=== PATIENT | female | born 1965 | race Caucasian/White ===

== ENCOUNTER 2016-06-28 14:49 | Emergency (ER) | payer OTHER ==
[2016-06-28 15:05] VITALS: TEMP 96.9
--- NOTE | 2016-06-28 15:48 | ED.PDOC ---
History of Present Illness - General Chief Complaint: Lower Extremity Injury Stated Complaint: left knee pain Time Seen by Provider: 06/28/16 15:40 Source: patient, RN notes reviewed, Vital Signs reviewed Exam Limitations: no limitations - History of Present Illness Initial Comments: Ms. Clair Estes 51 y/o female with history of hypothyroidism stated she had been hurting on her left knee for several weeks and for the last 3 days getting worse. Denies history of tauma,fever ;weight loss,but stated sometimes left knee hurts when she wakes up in am. Occurred: last week, other Pain - Lower Extremity: moderate: Left Knee Method of Injury: other - no injury Improving Factors: nothing Worsening Factors: movement Associated Symptoms: see hpi Allergies/Adverse Reactions: Allergies NO KNOWN ALLERGY Allergy (Verified 06/28/16 15:04) Home Medications: Ambulatory Orders Meloxicam [Mobic] 15 mg PO DAILY #30 tab 06/28/16 Tramadol HCl 50 mg PO TID PRN #30 tab 06/28/16 Review of Systems - Review of Systems Constitutional: States: no symptoms reported EENTM: States: no symptoms reported Respiratory: States: no symptoms reported Cardiology: States: no symptoms reported Gastrointestinal/Abdominal: States: no symptoms reported Genitourinary: States: no symptoms reported Musculoskeletal: States: joint pain Skin: States: no symptoms reported Neurological: States: no symptoms reported Endocrine: States: no symptoms reported Hematologic/Lymphatic: States: no symptoms reported Past Medical History (General) - Patient Medical History Hx Congestive Heart Failure: No Hx Thyroid Disease: Yes - Hypothyroid Hx Diabetes: No Surgical History: other - c section - Vaccination History Hx Influenza Vaccination: No - Social History Hx Tobacco Use: Yes - Activities of Daily Living Grooming Ability: Independent Eating (Feeding) Ability: Independent Toileting Ability: Independent Family Medical History - Family History Mother Family History: Unknown Living Status: Unknown Hx Family Diabetes: Yes - dad Hx Family Cancer: Yes - leukemia-dad Physical Exam - Physical Exam General Appearance: Alert, No apparent distress Eyes, Ears, Nose, Throat: PERRL/EOMI, normal ENT inspection, TMs normal Neck: non-tender, full range of motion, supple, normal inspection Cardiovascular/Respiratory: regular rate, rhythm, no M/R/G, normal peripheral pulses, no JVD Gastrointestinal/Abdominal: non-tender, no organomegaly Back: normal inspection, no CVA tenderness Thigh/Hip: normal inspection, non-tender Leg: normal inspection, no evidence of injury, other - no calf tenderness Knee: limited ROM - left knee because of pain, pain - left knee, swelling - left knee Ankle: normal inspection, non-tender Foot: normal inspection, non-tender Neuro/Tendon: normal sensation, normal motor functions, no evidence tendon injury Mental Status: alert, oriented x 3 Skin: normal color, warm/dry Progress - EKG/XRAY/CT XRAY: knee - left mild degenerative changes Departure - Departure Clinical Impression: Pain, joint, knee, left Time of Disposition: 16:47 Disposition: Discharge to Home or Self Care Condition: Fair Departure Forms: ED Discharge - Pt. Copy, Patient Portal Self Enrollment Instructions: DI for Knee Pain, Certain Exercises May Help People with Knee Osteoarthritis Referrals: KIRIT JI [Primary Care Provider] - 1-2 Weeks Prescriptions: Meloxicam [Mobic] 15 mg PO DAILY #30 tab Tramadol HCl 50 mg PO TID PRN #30 tab PRN Reason: Pain Home Medications: Ambulatory Orders Meloxicam [Mobic] 15 mg PO DAILY #30 tab 06/28/16 Tramadol HCl 50 mg PO TID PRN #30 tab 06/28/16 Additional Instructions: NEED to sign up with primary md
--- NOTE | 2016-06-28 16:19 | RAD ---
EXAM DESCRIPTION: Knee,Left Complete CLINICAL HISTORY: 51 years Female, pain COMPARISON: None. FINDINGS: 3 views of the left knee show no acute fracture or malalignment. There is no definite left knee joint effusion. Mild medial joint space narrowing. IMPRESSION: Mild degenerative changes, otherwise unremarkable exam. Electronically signed by: Matt Ferrer MD 06/28/2016 4:20 PM CDT Workstation: [facility]
[2016-06-28 17:09] VITALS: BP 129/87; O2SAT 97
== END 2016-06-28 17:09 | disposition home or self-care (01) ==
LOC: ER 14:49
DX: M25.562 Pain in left knee (principal); E03.9 Hypothyroidism, unspecified; Z87.891 Personal history of nicotine dependence

== ENCOUNTER → 2017-08-23 | Outpatient (CLI) | payer OTHER ==
--- NOTE | 2017-08-25 09:34 | MAM ---
EXAM DESCRIPTION: 3D Screening BILATERAL : Digital Mammography. CLINICAL HISTORY: 53 years Female SCREENING . No complaints. Remote family history of breast cancer. Childbirth. Postmenopausal. No HRT. COMPARISON: Baseline study at this facility.. No prior reports available. TECHNIQUE: Bilateral CC and MLO projection full-field images, 3-D tomosynthesis digital mammographic technique. CAD not utilized. FINDINGS: The breast parenchymal density pattern is: Scattered areas of fibroglandular density. No skin thickening or nipple retraction. Focal asymmetry in the retroareolar left breast. Predominantly behind the nipple and extending to the 600 clock position. Bilateral well-defined nodular densities are most likely intramammary lymph nodes. Minimal architectural distortion at the 200 clock position of the middle third of the left breast approximately 8 cm from the nipple. No new focal, stellate mass or density, focal asymmetry , and no suspicious microcalcifications right breast. IMPRESSION: BI-RADS CATEGORY: 0 - INCOMPLETE- Need additional imaging evaluation. FOLLOW-UP: Recall for additional imaging: . Bilateral 3-D tomosynthesis full field LM images. Spot compression 2-D regions of interest in the left breast LM and CC projections. Targeted left breast ultrasound if indicated by diagnostic images.. Written communication concerning the IMPRESSION and Follow-up, will be mailed to the patient and referring health care provider. Electronically signed by: Jerome Moise MD 08/25/2017 9:33 AM CDT
== END ==
LOC: MAMMO 09:00 → EDBD 09:00
PROVIDERS: ATTEND Obstetrics & Gynecology
DX: Z12.31 Encounter for screening mammogram for malignant neoplasm of breast (principal)

== ENCOUNTER → 2017-09-07 | Outpatient (CLI) | payer OTHER ==
--- NOTE | 2017-09-08 08:27 | US ---
EXAM DESCRIPTION: Breast,Left: Ultrasound CLINICAL HISTORY: 53 yearsFemaleABNORMAL MAMMO COMPARISON: Digital diagnostic mammogram left breast this visit. TECHNIQUE: Transcutaneous scanning of the left breast utilizing awan-scale and Doppler modes. Scanning performed by the stone polisher and Dr. Moise. FINDINGS: Scanning at the 300 clock position 5 cm from the nipple. Oval-shaped circumscribed solid nodule measuring 3.7 x 3.1 cm with parallel orientation and predominantly posterior enhancement features. Most likely a small fibroadenoma. Surrounding tissue is mostly fatty echotexture with minimal fibroglandular tissues. No distinct cyst. No parenchymal edema or large calcifications. No overlying skin changes or abnormal vascularity. Scanning in the retroareolar left breast show no abnormal findings. IMPRESSION: 1. Bi-Rads Category 3: Probably Benign Findings. 2. Please refer to left breast 3-D tomosynthesis diagnostic mammographic examination and report on this visit. The FINDINGS and the FOLLOW-UP plan were reviewed in person with the patient after the examination. Written communication explaining the IMPRESSION and FOLLOW-UP will be mailed to the patient and referring care provider. Electronically signed by: Jerome Moise MD 09/08/2017 8:26 AM CDT
--- NOTE | 2017-09-08 11:27 | MAM ---
EXAM DESCRIPTION: Diagnostic Mammo,Bilateral: Digital Mammography CLINICAL HISTORY: 53 yearsFemaleABNORMAL SCREENING focal asymmetry in the retroareolar left breast and minimal architectural distortion of the upper-outer quadrant of the middle third of the left breast.. COMPARISON: 3-D tomosynthesis bilateral screening mammography 08/23/2017.. Targeted left breast ultrasound following this examination. Report from prior examination also reviewed. TECHNIQUE: Bilateral LM projection full-field images, 3-D tomosynthesis digital mammographic technique. 2-D digital focal spot compression retroareolar left breast and upper outer quadrant of the left breast anterior to thirds. CAD not utilized. FINDINGS: The breast parenchymal density pattern is: Scattered areas of fibroglandular density. No skin thickening or nipple retraction focal asymmetry is again noted in the middle third of the upper-outer quadrant of the left breast. No mass or focal asymmetry in the retroareolar left breast. Ultrasound: Scanning at the 300 clock position 5 cm from the nipple. Oval-shaped circumscribed solid nodule measuring 3.7 x 3.1 cm with parallel orientation and predominantly posterior enhancement features. Most likely a small fibroadenoma. Surrounding tissue is mostly fatty echotexture with minimal fibroglandular tissues. No distinct cyst. No parenchymal edema or large calcifications. No overlying skin changes or abnormal vascularity. Scanning in the retroareolar left breast show no abnormal findings. IMPRESSION: BI-RADS CATEGORY: 3 - PROBABLY BENIGN. Management: Short interval (6-month) left breast digital diagnostic mammography and targeted left breast ultrasound.. Written communication explaining the IMPRESSION and follow-up will be mailed to the patient and referring care provider Electronically signed by: Jerome Moise MD 09/08/2017 11:25 AM CDT
== END ==
LOC: MAMMO 09:34
PROVIDERS: ATTEND Obstetrics & Gynecology
DX: R92.8 Other abnormal and inconclusive findings on diagnostic imaging of breast (principal)